=== PATIENT | female | born 1960 ===

== ENCOUNTER 2024-11-25 12:33 | Outpatient (CLI) | payer MEDICARE, SELFPAY ==
[2024-11-25 12:51] LABS: Hematocrit 37.2 % (35.0-42.0); Hemoglobin 12.0 g/dL (11.7-13.8); Mean Corpuscular HGB Conc 32.3 g/dL (32-36); Mean Corpuscular Hemoglobin 30.5 pg (27.0-31.0); Mean Corpuscular Volume 94.7 fL (78.0-102.0); Platelet Count Result 309 K/mm3 (150-420); Red Blood Count 3.93 M/mm3 (4.20-5.40); White Blood Count 4.6 K/mm3 (4.8-10.8)
--- OUTSIDE RECORDS SUMMARY | 2024-11-25 13:06 | XMS_ITS | Clinical Summary ---
Author Organization [facility] [id number] [place] Address [address] [place] [id number] Care Team Providers Care Audiology Doctor Name Role Phone No, Physician Primary Care Provider [phone] Allergies No known active allergies Medications No known medications Active Problems No known active problems Social History Tobacco Use Types Packs/Day Years Used Date Smoking Tobacco: Never Smokeless Tobacco: Never Tobacco Cessation:Counseling Given: Not Answered Personal Safety Answer Date Recorded Getting School Help Needed Not on file 05/20 Comments Unknown Sex and Gender Information Value Date Recorded Sex Assigned at Not on file Legal Sex Female 8:58 AM CDT Gender Identity Not on file Sexual Orientation Not on file Obstetrics History Last Filed Vital Signs Vital Sign Reading Time Taken Comments Blood Pressure 142/88 11/30/2022 11:12 AM CDT Pulse 92 11/30/2022 11:12 AM CDT Temperature 36.9 C (98.5 F) 11/30/2022 11:12 AM CDT Respiratory Rate 18 11/30/2022 11:12 AM CDT Oxygen Saturation 96% 11/30/2022 11:12 AM CDT Inhaled Oxygen Concentration - - Weight 63 kg (138 lb 14.4 oz) 11/30/2022 11:12 A M CDT Height 167.6 cm (5' 6) 11/30/2022 11:12 AM CDT Body Mass Index 22.42 11/30/2022 11:12 AM CDT Plan of Treatment Health Maintenance Due Date Last Done Comments Breast Cancer Screening-Mammogram 1959 Cervical Cancer Screening 1959 Colon Cancer Screening-Colonoscopy 1959 Depression Screening 1959 Fall Risk Assessment 1959 Hepatitis C Screening 1959 Osteoporosis Screening-Bone Density Scan 1959 DTaP/Tdap/Td Vaccine (1 - Tdap) 11/20/1970 Hepatitis B Screening 11/20/1977 Pneumococcal vaccine 65+ (1 of 1 - PCV) 11/20/2009 Zoster Vaccine (1 of 2) 11/20/2009 Covid-19 Vaccine (3 - 2024-2 6 season) 2024 06/26/2020, 05/26/2020 Influenza Vaccine (#1) 2024 , 12/23/2020, 12/23/2020, Additional history exists Well Visit 65+ 11/20/2024 Care Teams Audiology Doctor Relationship Specialty Start Date End Date No, Physician PCP - General 11/30/22
[2024-11-25 13:12] LABS: Add Urine Microscopic? NO; Appearance Urine Clear (Clear); Glucose Urine UA Negative (Negative); Leukocyte Esterase Ur Negative (Negative); Nitrate Urine Negative (Negative); Specific Grav Ur 1.020 (1.010-1.020)
[2024-11-25 13:16] LABS: Alanine Aminotransferase 15 U/L (6-35); Albumin Level 4.4 g/dL (3.5-5.1); Alkaline Phosphatase 81 U/L (38-126); Anion Gap 7 mmol/L (4-12); Aspartate Amino Transferase 24 U/L (14-36); Bilirubin,Total 0.7 mg/dL (0.2-1.3); Blood Urea Nitrogen 10 mg/dL (7-17); Calcium 9.9 mg/dL (8.4-10.2); Carbon Dioxide 30 mmol/L (22-30); Chloride 104 mmol/L (98-107); Cholesterol 264 mg/dL (0-200); Estimated Glomerular Filt Rate > 60; Glucose 95 mg/dL (65-110); HDL Direct 99 mg/dL; Osmolality Calculated 291 mOsm/kg (285-295); Potassium 4.0 mmol/L (3.4-5.0); Sodium 141 mmol/L (137-145); Total Protein 7.3 g/dL (6.3-8.2); Triglycerides 74 mg/dL (<150)
[2024-11-25 13:47] LABS: Thyroid Stimulating Hormone 2.340 uIU/mL (0.465-4.680)
[2024-11-25 14:09] LABS: Vitamin B12 258.0 pg/mL (239-931)
== END 2024-11-25 12:34 | disposition home or self-care (01) ==
LOC: CHSLAB 12:41
PROVIDERS: PCP Internal Medicine; Visit Provider Internal Medicine
DX: M81.0 Age-related osteoporosis without current pathological fracture (principal); N95.9 Unspecified menopausal and perimenopausal disorder; R53.83 Other fatigue; E78.5 Hyperlipidemia, unspecified; Z78.0 Asymptomatic menopausal state
CPT/HCPCS: 36415; 80053; 80061; 81003; 82607; 83921; 84443; 85027